=== PATIENT | male | born 1950 | race Caucasian/White ===

== ENCOUNTER 2017-08-22 09:00 | Emergency (ER) | payer MEDICARE ==
[~2017-08-22] VITALS: Ht 167.6 cm; Wt 86.0 kg
[~2017-08-22 09:00] MED LIST: ALBUTEROL SUL0.083 % IN; AMOXICILLIN875 MG PO; CIPROFLOXACN500 MG PO; CLARITIN10 M2 PO; DIFLUCAN150 MG PO; DOXYCYCL HYC100 MG PO; DUONEB IN; FLORASTOR250 M1 PO; FLUARIX QUADRIV1 IN1 IM; LEVAQUIN750 MG PO; MUCINEX600 MG PO; NASACORT AQ55 MCG/AC; NEBULIZER KIT/TUBING; NYSTATIN100000 M1 PO; PNEUMOVAX 23 IM; PREDNISONE10 MG PO; PREDNISONE20 MG PO; PROAIR HFA IN; PROVENTIL0.083 % IN; SINGULAIR PO; SYMBICORT1 AE1 IN; ZYRTEC10 M5 PO
[2017-08-22 09:26] VITALS: BP 150/91
[2017-08-22] MEDS ORDERED: MOTRIN400 MG PO (10:20)
[2017-08-22] MEDS ORDERED: CYCLOBENZAPR5 MG PO (10:20)
== END 2017-08-22 10:34 | disposition home or self-care (01) ==
LOC: ED 09:00
DX: M25.552 Pain in left hip (principal)

== ENCOUNTER 2023-04-21 21:19 | Emergency (ER) | payer MEDICARE ==
[~2023-04-21] VITALS: Ht 167.6 cm; Wt 72.0 kg
[~2023-04-21 21:19] MED LIST changes: +AZELASTINE HCL0.1 %; +CYCLOBENZAPR5 MG PO; +HYDROCODONE/ACE1 TAB PO; +MOTRIN400 MG PO; +NARCAN4 MG/0.1 M; +PERFOROMIS20 MCG/2 M IN
[2023-04-21 21:49] LABS: HEMATOCRIT 34.3 % (39.0-50.0); HEMOGLOBIN 10.5 g/dl (14.0-18.0); IMMATURE GRANULOCYTES 0.8 % (0.0-5.0); MEAN CELL VOLUME 78.1 fL CALC (80.0-100.0); MEAN CORPUSCULAR HGB 23.9 pG CALC (26.0-32.0); MEAN CORPUSCULAR HGB CONC 30.6 g/dL CAL (32.0-36.0); PLATELET COUNT 756 thou/uL (130-400); RED BLOOD COUNT 4.39 mill/uL (4.70-6.10); RED CELL DISTRI WIDTH 15.8 % (11.5-15.5)
[2023-04-21 21:58] LABS: ALBUMIN 3.2 g/dL (3.2-5.0); ALKALINE PHOSPHATASE 112 u/l (38-126); ANION GAP 20 (6-22 (CALC)); BILIRUBIN, TOTAL 0.6 mg/dL (0.2-1.3); BUN 44 mg/dL (8-23); BUN/CREATININE RATIO 37 (12-20 (CALC)); CARBON DIOXIDE 23 mmol/l (22-30); CHLORIDE 93 mmol/l (95-108); CREATININE 1.2 mg/dL (0.7-1.3); GFR FOR AFR.AMER. > 60 ML/MIN (>=60 (CALC)); GFR OTHER RACES 59 ML/MIN (>=60 (CALC)); POTASSIUM 5.2 mmol/l (3.5-5.1); SGOT/AST 32 u/l (19-48); SODIUM 131 mmol/l (137-146); TOTAL PROTEIN 6.4 g/dL (6.3-8.2)
[2023-04-21 22:17] LABS: BAND 34 % (0-8); TOXIC GRANULATION FEW
[2023-04-21 22:18] LABS: MANUAL DIFFERENTIAL YES
[2023-04-22] VITALS (12 sets, daily range): BP systolic 118–147; BP diastolic 73–90
== END 2023-04-22 04:38 | disposition short-term general hospital (02) ==
LOC: ED 21:19
PROVIDERS: Emergency Medicine
DX: K66.8 Other specified disorders of peritoneum (principal); J44.1 Chronic obstructive pulmonary disease with (acute) exacerbation; D72.829 Elevated white blood cell count, unspecified; I10 Essential (primary) hypertension; E78.00 Pure hypercholesterolemia, unspecified; Z99.81 Dependence on supplemental oxygen
CPT/HCPCS: Q9967